=== PATIENT | male | born 1950 | race Caucasian/White ===

== ENCOUNTER → 2017-07-23 | Outpatient (CLI) | payer BC, MEDICARE ==
--- NOTE | 2017-07-23 13:06 | RAD ---
CT of the paranasal sinuses without contrast, 07/23/2017: History: Sinusitis Noncontrast scans were obtained and compared to a study from 10/23/2015. There is mild mucosal thickening in both maxillary sinuses. There is moderate mucosal thickening in both ethmoid sinuses. This involves the ostiomeatal complexes. There is mild mucosal thickening in both frontal sinuses. There is minimal mucosal thickening anteriorly in the left sphenoid sinus. No free fluid is evident in the paranasal sinuses. Similar findings were present on the previous study. There is an unchanged small defect in the medial wall of the right maxillary sinus which is presumably postsurgical. The bony structures are otherwise unremarkable. The orbital contents show no abnormality. IMPRESSION: Mild to moderate mucosal thickening in multiple paranasal sinuses as described above, compatible with chronic sinusitis. No free fluid is evident in the sinuses. PQRS Compliance Statement: One or more of the following individualized dose reduction techniques were utilized for this examination: 1. Automated exposure control 2. Adjustment of the mA and/or kV according to patient size 3. Use of iterative reconstruction technique
== END | disposition home or self-care (01) ==
LOC: CT 10:05
PROVIDERS: ATTEND Otolaryngology
DX: J32.9 Chronic sinusitis, unspecified (principal); Z98.890 Other specified postprocedural states
CPT/HCPCS: 70486

== ENCOUNTER 2018-09-28 11:35 | Inpatient (IN) | payer MEDICARE, BC ==
[~2018-09-28] VITALS: Ht 177.8 cm; Wt 89.0 kg
[2018-09-28 12:10] LABS: BASO % 1 % (0-3); EOS % 1 % (0-3); HEMATOCRIT 40.9 % (39.0-53.0); HEMOGLOBIN 14.6 g/dL (13.0-17.5); LYMPH # 1.2 x10^3/uL (1.0-4.8); LYMPH % 34 % (24-48); MEAN CORPUSCULAR HEMOGLOBIN 35 pg (25-35); MEAN CORPUSCULAR HGB CONC 36 g/dL (31-37); MEAN CORPUSCULAR VOLUME 98 fL (79-100); MONO # 0.3 x10^3/uL (0.0-1.1); MONO % 9 % (0-9); NEUT # 1.9 x10^3uL (1.8-7.7); NEUT % 56 % (31-73); PLATELET COUNT 191 x10^3/uL (140-400); RED CELL DISTRIBUTION WIDTH 13.7 % (11.5-14.5); WHITE BLOOD COUNT 3.4 x10^3/uL (4.0-11.0)
--- NOTE | 2018-09-28 12:23 | RAD ---
EXAM: Chest, 2 views. HISTORY: Chest pain. COMPARISON: None. FINDINGS: 2 views of the chest are obtained. There is no infiltrate, pleural effusion or pneumothorax. The heart is normal in size. IMPRESSION: No acute pulmonary finding. Electronically signed by: Page Salamanca MD (09/28/2018 12:21 PM) [place] [id number]
[2018-09-28 12:31] LABS: ALBUMIN 4.5 g/dL (3.4-5.0); ALBUMIN/GLOBULIN RATIO 1.4 (1.0-1.7); CALCIUM 9.5 mg/dL (8.5-10.1); CREATININE 1.9 mg/dL (0.7-1.3); GFR 35.5; POTASSIUM 3.2 mmol/L (3.5-5.1); TOTAL BILIRUBIN 0.9 mg/dL (0.2-1.0); TOTAL PROTEIN 7.7 g/dL (6.4-8.2)
[2018-09-28 12:41] LABS: BACTERIA,URINE 0 /HPF (0-FEW); BILIRUBIN,URINE NEG (NEG); CLARITY,URINE CLEAR; COLOR,URINE STRAW; GLUCOSE,URINE NEG (NEG); NITRITE,URINE NEG (NEG); RBC,URINE 0 /HPF (0-2); SQUAMOUS EPITHELIAL CELL,UR FEW /LPF; UROBILINOGEN,URINE 0.2 mg/dL (0.2 mg/dL); WBC,URINE 0 /HPF (0-4)
--- NOTE | 2018-09-28 12:43 | EKG ---
[address] [address] Test Date: 2018-09-28 Test Time: 11:39:38 Pat Name: KIMBERLY SERNA Department: Room: Gender: M Router Machine Operator: : [id number] Requested By: DAMON ALARCON Order Number: [id number] Reading MD: Tyler Sena MD Measurements Intervals [place] Rate: 82 P: 39 MS: 158 QRS: -34 QRSD: 80 T: 141 QT: 372 QTc: 438 Interpretive Statements SINUS RHYTHM ABNORMAL LEFT AXIS DEVIATION LEFT ANTERIOR FASCICULAR BLOCK CONSIDER LEFT VENTRICULAR HYPERTROPHY Electronically Signed On 09-29-2018 10:47:48 CDT by Tyler Sena MD
[2018-09-28] MEDS ORDERED: POTASSIUM CHLORIDE 20 MEQ TABLET.ER. PO ONE (12:45)
--- NOTE | 2018-09-28 14:03 | PHYS DOC ---
Past History Past Medical History: Other Past Surgical History: No Surgical History Alcohol Use: None Drug Use: None Adult General Chief Complaint Chief Complaint: CHEST PAIN HPI HPI Patient is a 68 year old male who presents with complaining of shortness of breath and hurting all over and chest pain. Patient complaining of hurting all over and generalized weakness for 2 months as a constant problem that gradually getting worse. Patient complaining of right-sided chest pain for the last couple days as a sharp pain without radiation that getting worse with taking deep breaths. Patient complaining of dizziness and lightheadedness and almost passing out prior to arrival to ER. Patient states he was treated for sinus infection by his primary care physician. Patient states he had abnormal PSA and has appointment for prostate biopsy next week and has concern about his health. Patient is very anxious and hyperventilating while giving the history. Review of Systems Review of Systems Constitutional: Denies fever or chills [] Eyes: Denies change in visual acuity, redness, or eye pain [] HENT: Denies nasal congestion or sore throat [] Respiratory: Reports cough and shortness of breath Cardiovascular: No additional information not addressed in HPI [] GI: Denies abdominal pain, nausea, vomiting, bloody stools or diarrhea [] : Denies dysuria or hematuria [] Musculoskeletal: Denies back pain or joint pain [] Integument: Denies rash or skin lesions [] Neurologic: Denies headache, focal weakness or sensory changes , reports dizziness[] Endocrine: Denies polyuria or polydipsia [] All other systems were reviewed and found to be within normal limits, except as documented in this note. Current Medications Current Medications Current Medications Medications (Trade) Dose Ordered Sig/Earlene Start Time Stop Time Status Last Admin Dose Admin Lorazepam (Ativan) 1 mg 1X ONCE 09/28/18 12:20 09/28/18 12:21 DC 09/28/18 12:20 1 MG Potassium Chloride (Klor-Con) 40 meq 1X ONCE 09/28/18 12:45 09/28/18 12:46 DC 09/28/18 12:45 40 MEQ Allergies Allergies Allergies Coded Allergies Type Severity Reaction Last Updated Verified No Known Drug Allergies 10/23/15 No Physical Exam Physical Exam Constitutional: Well developed, well nourished, moderate distress, non-toxic appearance, hyperventilating and anxious. [] HENT: Normocephalic, atraumatic, oropharynx moist, no oral exudates, nose normal. [] Eyes: PERRLA, EOMI, conjunctiva normal, no discharge. [] Neck: Normal range of motion, no tenderness, supple, no stridor. [] Cardiovascular:Heart rate regular rhythm, no murmur [] Lungs & Thorax: Bilateral breath sounds clear to auscultation [] Abdomen: Bowel sounds normal, soft, no tenderness, no masses, no pulsatile masses. [] Skin: Warm, dry, no erythema, no rash. [] Back: No tenderness, no CVA tenderness. [] Extremities: No tenderness, no cyanosis, no clubbing, ROM intact, no edema. [] Neurologic: Alert and oriented X 3, normal motor function, normal sensory function, no focal deficits noted. [] Psychologic: Affect anxious, judgement normal, mood normal. [] Current Patient Data Vital Signs Vital Signs Date Time Temp Pulse Resp B/P (MAP) Pulse Ox O2 Delivery O2 Flow Rate FiO2 09/28/18 12:02 88 20 96 Nasal Cannula 3.0 Lab Results Laboratory Tests Test 09/28/18 11:45 09/28/18 12:14 White Blood Count 3.4 x10^3/uL (4.0-11.0) L Red Blood Count 4.20 x10^6/uL (4.30-5.70) L Hemoglobin 14.6 g/dL (13.0-17.5) Hematocrit 40.9 % (39.0-53.0) Mean Corpuscular Volume 98 fL (79-100) Mean Corpuscular Hemoglobin 35 pg (25-35) Mean Corpuscular Hemoglobin Concent 36 g/dL (31-37) Red Cell Distribution Width 13.7 % (11.5-14.5) Platelet Count 191 x10^3/uL (140-400) Neutrophils (%) (Auto) 56 % (31-73) Lymphocytes (%) (Auto) 34 % (24-48) Monocytes (%) (Auto) 9 % (0-9) Eosinophils (%) (Auto) 1 % (0-3) Basophils (%) (Auto) 1 % (0-3) Neutrophils # (Auto) 1.9 x10^3uL (1.8-7.7) Lymphocytes # (Auto) 1.2 x10^3/uL (1.0-4.8) Monocytes # (Auto) 0.3 x10^3/uL (0.0-1.1) Eosinophils # (Auto) 0.0 x10^3/uL (0.0-0.7) Basophils # (Auto) 0.0 x10^3/uL (0.0-0.2) D-Dimer (Mohini) 0.64 mg/L (0.00-0.50) H Sodium Level 141 mmol/L (136-145) Potassium Level 3.2 mmol/L (3.5-5.1) L Chloride Level 100 mmol/L (98-107) Carbon Dioxide Level 24 mmol/L (21-32) Anion Gap 17 (6-14) H Blood Urea Nitrogen 20 mg/dL (8-26) Creatinine 1.9 mg/dL (0.7-1.3) H Estimated GFR (Cockcroft-Gault) 35.5 BUN/Creatinine Ratio 11 (6-20) Glucose Level 171 mg/dL (70-99) H Calcium Level 9.5 mg/dL (8.5-10.1) Total Bilirubin 0.9 mg/dL (0.2-1.0) Aspartate Amino Transferase (AST) 26 U/L (15-37) Alanine Aminotransferase (ALT) 31 U/L (16-63) Alkaline Phosphatase 96 U/L (46-116) Creatine Kinase 116 U/L (39-308) Troponin I Quantitative < 0.017 ng/mL (0-0.055) VQ-Arr-R-Type Natriuretic Peptide 70 pg/mL (0-124) Total Protein 7.7 g/dL (6.4-8.2) Albumin 4.5 g/dL (3.4-5.0) Albumin/Globulin Ratio 1.4 (1.0-1.7) Lipase 240 U/L (73-393) Urine Collection Type Unknown Urine Color Straw Urine Clarity Clear Urine pH 7.5 Urine Specific [place] 1.010 Urine Protein Neg (NEG-TRACE) Urine Glucose (UA) Neg mg/dL (NEG) Urine Ketones (Stick) Neg mg/dL (NEG) Urine Blood Neg (NEG) Urine Nitrite Neg (NEG) Urine Bilirubin Neg (NEG) Urine Urobilinogen Dipstick 0.2 mg/dL (0.2 mg/dL) Urine Leukocyte Esterase Neg (NEG) Urine RBC 0 /HPF (0-2) Urine WBC 0 /HPF (0-4) Urine Squamous Epithelial Cells Few /LPF Urine Bacteria 0 /HPF (0-FEW) EKG EKG EKG interpreted by me. EKG at 1139 showed normal sinus rhythm at rate of 82, left axis deviation, left anterior fascicular block, left ventricular hypertrophy, T-wave abnormality in inferior and anterolateral lateral leads, no acute ST and T-wave abnormalities. Radiology/Procedures Radiology/Procedures [] Course & Med Decision Making Course & Med Decision Making Pertinent Labs and Imaging studies reviewed. (See chart for details) Evaluation of patient in ER showed 68-year-old male patient with complaining of generalized weakness and shortness of breath for 2 months and chest pain for couple days with near syncopal episode prior to arrival to ER. Patient was very anxious at arrival to ER and felt better with Ativan and oxygen. Patient had abnormal T wave in EKG with creatinine of 1.9 and white count of 3.4 and potassium of 3.2. D-dimer was mildly elevated and VQ scan is pending. Patient informed about this results and plan of care. Dr. Rubio accepted admission at 1356. Dragon Disclaimer Dragon Disclaimer This electronic medical record was generated, in whole or in part, using a voice recognition dictation system. Departure Departure: Impression: Primary Impression: Chest pain Additional Impressions: Hypokalemia Renal insufficiency Leukopenia Anxiety about health Dyspnea Elevated d-dimer Disposition: ADMITTED INPATIENT (@1357) Admitting Physician: Caroline Rubio (accepted admission at 1356) Condition: IMPROVED Referrals: STEFANI BONILLA MD (PCP) Problem Qualifiers Primary Impression: Chest pain Chest pain type: unspecified Qualified Codes: R07.9 - Chest pain, unspecified Additional Impressions: Leukopenia Leukopenia type: unspecified Qualified Codes: D72.819 - Decreased white blood cell count, unspecified Dyspnea Dyspnea type: dyspnea on exertion Qualified Codes: R06.09 - Other forms of dyspnea DAMON ALARCON MD Sep 28, 2018 14:03
[2018-09-28] MEDS ORDERED: LOSA1TAB22 PO (15:08)
[2018-09-28] MEDS ORDERED: OMEP20TA63 PO (15:08)
[2018-09-28] MEDS ORDERED: OXYM30SP73 NS (15:08)
[2018-09-28] MEDS ORDERED: NEBI10TA3 PO (15:08)
[2018-09-28] MEDS ORDERED: ATORVASTATIN CA80 MG PO (15:08)
[2018-09-28] MEDS ORDERED: OMEG1CAP6 PO (15:08)
[2018-09-28] MEDS ORDERED: IPRA0.2S5 NEB (15:08)
[2018-09-28 17:40] VITALS: BP 187/82
--- NOTE | 2018-09-28 17:47 | RAD ---
CLINICAL HISTORY: Elevated D Dimer Dyspnea near syncope fatigue 10.5mci 133XE Gas 5.5mci 99mTc MAA COMPARISON: None available. TECHNIQUE: Radiopharmaceutical Dose: 5.5 mCi Tc99m MAA intravenous , 10.5 mCi Xe-133 Inhalation The patient was injected with tracer in the supine position and images obtained in the anterior, posterior, anterior oblique, posterior oblique, and lateral projections. A ventilation study was performed in the same projections. FINDINGS: There is symmetric uptake of radiotracer on the perfusion images without perfusion defect. There is also symmetric uptake on the ventilation scan, also without discrete ventilation defect IMPRESSION: Normal examination. Radiation Dosimetry: The radiopharmaceutical used for this exam delivers approximately: 0.4 mSv/mCi (40 mRem/mCi) from Tc99m perfusion imaging. 0.2 mSv/mCi (20 mRem/mCi) from Tc99m DTPA aerosol imaging. 0.027 mSv/mCi (2.7 mRem/mCi) from Xe-133 ventilation imaging. Source: Effective dose RADAR Electronically signed by: Jered Lopes MD (09/28/2018 5:44 PM) [facility]
[2018-09-28 20:01] VITALS: BP 175/75
[2018-09-28] MEDS ORDERED: ATORVASTATIN CALCIUM 20 MG TABLET PO SCH (21:00)
[2018-09-28] MEDS ORDERED: METOPROLOL TART IMMED RELEASE 50 MG TABLET PO SCH (21:00)
[2018-09-28 23:14] VITALS: BP 145/75
[2018-09-29 03:39] LABS: HEMATOCRIT 39.3 % (39.0-53.0); HEMOGLOBIN 13.9 g/dL (13.0-17.5); RED CELL DISTRIBUTION WIDTH 13.9 % (11.5-14.5); WHITE BLOOD COUNT 4.5 x10^3/uL (4.0-11.0)
[2018-09-29 04:38] LABS: ALBUMIN/GLOBULIN RATIO 1.2 (1.0-1.7); C REACTIVE PROTEIN 1.2 mg/L (0-3.3); CALCIUM 9.3 mg/dL (8.5-10.1); CREATININE 1.7 mg/dL (0.7-1.3); GFR 40.4; TOTAL BILIRUBIN 0.7 mg/dL (0.2-1.0); TOTAL PROTEIN 7.3 g/dL (6.4-8.2)
[2018-09-29 05:34] VITALS: BP 149/81
[2018-09-29] MEDS ORDERED: PANTOPRAZOLE 40 MG TABLET. PO SCH (07:30)
--- NOTE | 2018-09-29 07:46 | PDOC2 ---
CONSULT Date of Admission DATE: 09/29/18 TIME: 07:46 Reason for Consult: chest pain Problem List Problems Medical Problems: (1) Anxiety about health Status: Acute (2) Chest pain Status: Acute (3) Dyspnea Status: Acute (4) Elevated d-dimer Status: Acute (5) Hypokalemia Status: Acute (6) Leukopenia Status: Acute (7) Renal insufficiency Status: Acute History of Present Illness Mr Lr is a 68 year old male who normally follows with [facility] for his cardiology care. He presented with complaints of progressive fatigue since April. He reports a significant decrease in his functional capacity due to lack of energy. He reports recent antibiotic use for sore throat and upper respiratory symptoms but denies fever, chills or cough. He does report some dyspnea on exertion since April which was increased yesterday with wheezing and feeling he could not get a deep breath. He reports intermittent chest discomfort described as a knot in his right chest. He is unable to articulate if this occurs with exertion or not. He reports it only lasts a few minutes each time. yesterday he felt that his symptoms were becoming more pronounced with addition of lightheadedness and the feeling that he might pass out. He did have an appointment with cardiology yesterday but felt bad enough that he called EMS instead. He denies palpitations. He denies congestive symptoms. He reports frequent use of ibuprofen recently to manage symptoms. Past Medical History Stress echo 02/05/16 normal heart rate and blood pressure response to stress no chest pain PACs and PVCs noted no significant stress induced ECG changes Good Exercise capacity with Packer score 9 normal exercise echo. Echo 02/12/17 LVEF 55-60%. No WMA. Mild LVH. Impaired LV relaxation suggestive of stage I diastolic dysfunction mild aortic valve sclerosis with trace AI mild to moderate mitral regurgitation estimated PAS 29 mmHg compared to 2016, no significant change He reports prior recommendation to decrease ETOH consumption due to risk of pancreatitis Cardiovascular: HTN, hyperipidemia (lipids in July - LDL 87, HDL 55, Tgs 134) GI: GERD, Other (internal hemorrhoids, diverticulosis and tubular adenoma) Psych: Anxiety Musculoskeletal: Other (hammer toes) ENT: Sinusitis Renal/: Other (epididymitis, elevated PSA with scheduled biopsy for next week.) Past Surgical History sinus surgeries, bone spur surgery Family History no premature coronary disease Social History non smoker, He does report ETOH use but significantly less since ~2009, denies illicit drugs Current Medications Current Medications Lorazepam (Ativan) 1 mg 1X ONCE IV Last administered on 09/28/18at 12:20; Start 09/28/18 at 12:20; Stop 09/28/18 at 12:21; Status DC Potassium Chloride (Klor-Con) 40 meq 1X ONCE PO Last administered on at 12:45; Start 09/28/18 at 12:45; Stop 09/28/18 at 12:46; Status DC Atorvastatin Calcium (Lipitor) 80 mg QHS PO Last administered on 09/28/18at 20: 38; Start 09/28/18 at 21:00 Metoprolol Tartrate (Lopressor) 50 mg BID PO Last administered on 09/28/18at 20: 39; Start 09/28/18 at 21:00 Pantoprazole Sodium (Protonix) 40 mg DAILYAC PO ; Start 09/29/18 at 07:30 Oxymetazoline HCl (Afrin) 2 spray DAILY NS ; Start 09/29/18 at 09:00 Active Scripts Active Reported Ipratropium [place] 0.2 Mg/1 Ml Solution 1 Vial NEB QIDPRN PRN Nasal [place] Original (Oxymetazoline Hcl) 30 Ml [place] 30 Ml NS DAILY Prilosec Otc (Omeprazole Magnesium) 20 Mg Tablet.dr 1 Tab PO DAILY Fish Oil 1,000 Mg Capsule ([place]-3 Fatty Acids/Fish Oil) 1 Each Capsule 1 Each PO DAILY Losartan-Hctz 100-25 Mg Tab (Losartan/Hydrochlorothiazide) 1 Each Tablet 1 Tab PO DAILY Atorvastatin Calcium 80 Mg Tablet 1 Tab PO DAILY Bystolic (Nebivolol Hcl) 10 Mg Tablet 1 Tab PO DAILY Allergies: Coded Allergies: No Known Drug Allergies (Unverified , 10/23/15) General: YES: Fatigue, Malaise HEENT: YES: Nasal congestion, Nasal discharge, Sinus pain, Sore Throat ALLERGY AND IMMUNOLOGY: YES: Post Nasal Drip Respiratory: YES: SOB with excertion Cardiovascular: yes: Chest Pain, Lt Headedness General: Alert, Oriented X3, No acute distress HEENT: Atraumatic, EOMI Lungs: Clear to auscultation, Normal air movement Heart: Normal S1, Normal S2, Other (no gallops, clicks or rubs. soft systolic murmur) Abdomen: Normal bowel sounds, Soft Extremities: No cyanosis, No edema, Normal pulses Neuro: Normal speech, Strength at 5/5 X4 ext Psych/Mental Status: Mental status NL, Other (irritable ) VITALS Vital Signs Date Time Temp Pulse Resp B/P (MAP) Pulse Ox O2 Delivery O2 Flow Rate FiO2 09/29/18 05:34 97.8 56 10 149/81 (103) 99 Room Air 09/28/18 12:02 3.0 Labs Laboratory Tests Test 09/28/18 11:45 09/28/18 12:14 09/29/18 00:27 09/29/18 03:29 White Blood Count 3.4 x10^3/uL (4.0-11.0) 4.5 x10^3/uL (4.0-11.0) Red Blood Count 4.20 x10^6/uL (4.30-5.70) 4.00 x10^6/uL (4.30-5.70) Hemoglobin 14.6 g/dL (13.0-17.5) 13.9 g/dL (13.0-17.5) Hematocrit 40.9 % (39.0-53.0) 39.3 % (39.0-53.0) Mean Corpuscular Volume 98 fL (79-100) 98 fL (79-100) Mean Corpuscular Hemoglobin 35 pg (25-35) 35 pg (25-35) Mean Corpuscular Hemoglobin Concent 36 g/dL (31-37) 35 g/dL (31-37) Red Cell Distribution Width 13.7 % (11.5-14.5) 13.9 % (11.5-14.5) Platelet Count 191 x10^3/uL (140-400) 185 x10^3/uL (140-400) Neutrophils (%) (Auto) 56 % (31-73) Lymphocytes (%) (Auto) 34 % (24-48) Monocytes (%) (Auto) 9 % (0-9) Eosinophils (%) (Auto) 1 % (0-3) Basophils (%) (Auto) 1 % (0-3) Neutrophils # (Auto) 1.9 x10^3uL (1.8-7.7) Lymphocytes # (Auto) 1.2 x10^3/uL (1.0-4.8) Monocytes # (Auto) 0.3 x10^3/uL (0.0-1.1) Eosinophils # (Auto) 0.0 x10^3/uL (0.0-0.7) Basophils # (Auto) 0.0 x10^3/uL (0.0-0.2) D-Dimer (Mohini) 0.64 mg/L (0.00-0.50) Sodium Level 141 mmol/L (136-145) 144 mmol/L (136-145) Potassium Level 3.2 mmol/L (3.5-5.1) 4.0 mmol/L (3.5-5.1) Chloride Level 100 mmol/L (98-107) 105 mmol/L (98-107) Carbon Dioxide Level 24 mmol/L (21-32) 27 mmol/L (21-32) Anion Gap 17 (6-14) 12 (6-14) Blood Urea Nitrogen 20 mg/dL (8-26) 22 mg/dL (8-26) Creatinine 1.9 mg/dL (0.7-1.3) 1.7 mg/dL (0.7-1.3) Estimated GFR (Cockcroft-Gault) 35.5 40.4 BUN/Creatinine Ratio 11 (6-20) 13 (6-20) Glucose Level 171 mg/dL (70-99) 101 mg/dL (70-99) Calcium Level 9.5 mg/dL (8.5-10.1) 9.3 mg/dL (8.5-10.1) Total Bilirubin 0.9 mg/dL (0.2-1.0) 0.7 mg/dL (0.2-1.0) Aspartate Amino Transf (AST/SGOT) 26 U/L (15-37) 21 U/L (15-37) Alanine Aminotransferase (ALT/SGPT) 31 U/L (16-63) 28 U/L (16-63) Alkaline Phosphatase 96 U/L (46-116) 81 U/L (46-116) Creatine Kinase 116 U/L (39-308) Troponin I Quantitative < 0.017 ng/mL (0-0.055) < 0.017 ng/mL (0-0.055) < 0.017 ng/mL (0-0.055) FU-Iqa-L-Type Natriuretic Peptide 70 pg/mL (0-124) Total Protein 7.7 g/dL (6.4-8.2) 7.3 g/dL (6.4-8.2) Albumin 4.5 g/dL (3.4-5.0) 4.0 g/dL (3.4-5.0) Albumin/Globulin Ratio 1.4 (1.0-1.7) 1.2 (1.0-1.7) Lipase 240 U/L (73-393) Urine Collection Type Unknown Urine Color Straw Urine Clarity Clear Urine pH 7.5 Urine Specific [place] 1.010 Urine Protein Neg (NEG-TRACE) Urine Glucose (UA) Neg mg/dL (NEG) Urine Ketones (Stick) Neg mg/dL (NEG) Urine Blood Neg (NEG) Urine Nitrite Neg (NEG) Urine Bilirubin Neg (NEG) Urine Urobilinogen Dipstick 0.2 mg/dL (0.2 mg/dL) Urine Leukocyte Esterase Neg (NEG) Urine RBC 0 /HPF (0-2) Urine WBC 0 /HPF (0-4) Urine Squamous Epithelial Cells Few /LPF Urine Bacteria 0 /HPF (0-FEW) Erythrocyte Sedimentation Rate 20 (0-15) C-Reactive Protein 1.2 mg/L (0-3.3) Images EKG sinus rhythm, left axis, nonspecific st/t abn, no acute ischemic changes Assessment/Plan 1. Chest pain, MN ruled out. EKG with no acute ischemic changes. continue beta shan, start aspirin, check lipids and echo. outpatient MPI if no significant abnormalities 2. dyspnea on exertion - no overt heart failure. 3. URI with history of chronic sinusitis and surgeries x 3 - per PCP 4. accelerated hypertension - add hydralazine. resume home ARB and monitor renal function 5. acute on chronic renal insufficiency - Cr on admit 1.9, 1.7 today. Baseline Cr 1.3 in July. Resume losartan, discontinue HCTZ. Monitor. Will need outpatient BMP follow up. Likely secondary to combination of mild dehydration and increased NSAID use. 6. hyperlipidemia - resume statin, check lipids, well controlled in Jul 2018 7. Fatigue - TSH 1.49 in July, check Vit D, consider outpatient sleep study 8. elevated PSA - scheduled for biopsy next week 9. anxiety Cardiology records reviewed. Check echo, ambulate for chronotropic response. if no significant abn, ok for outpatient CV follow up and consider MPI, event monitoring and sleep study as outpatient. JENNIFER PRICE APRN Sep 29, 2018 07:46
[2018-09-29] MEDS ORDERED: ASPIRIN ENTERIC COATED 81 MG TABLET.DR. PO SCH (08:00)
[2018-09-29] MEDS ORDERED: ACETAMINOPHEN 500 MG TABLET PO ONE (08:26)
[2018-09-29] MEDS ORDERED: ACETAMINOPHEN 500 MG TABLET PO PRN (08:30)
[2018-09-29] MEDS ORDERED: METOPROLOL TART IMMED RELEASE 50 MG TABLET PO SCH (09:00)
[2018-09-29] MEDS ORDERED: OXYMETAZOLINE 0.05% NASAL SPRAY 15ML BOTTLE. NS SCH (09:00)
[2018-09-29] MEDS ORDERED: LOSARTAN 50 MG TABLET. PO SCH (09:00)
[2018-09-29 11:07] VITALS: BP 137/80
[2018-09-29 15:30] VITALS: BP 167/88
--- NOTE | 2018-09-29 16:07 | HP ---
ADMIT DATE: 09/28/2018 HISTORY OF PRESENT ILLNESS: The patient is a 68-year-old male patient who came to the Emergency Room complaining of shortness of breath, hurting all over. Right-sided chest pain has also generalized weakness; it is going on for almost 2 months as a constant problem that gradually getting worse. The patient is complaining of right-sided chest pain for the last couple of days, described as sharp pain without radiation that is getting worse by taking deep breaths. He is complaining of dizziness, lightheadedness, and almost passing out prior to arrival to Emergency Room. He stated he was treated for sinus infection by his primary care physician. He also had an abnormal PSA and has an appointment for prostate biopsy on 10/06/2018. The patient was extremely anxious and hyperventilating while giving the history. PAST MEDICAL HISTORY: He was basically evaluated in the Emergency Room, has had an EKG, which showed that he was in sinus rhythm at a rate of 82 with left axis deviation, left anterior fascicular block, left ventricular hypertrophy with some T-wave abnormalities in inferior and anterolateral leads, but no ST segment or T-wave elevation. His first set of cardiac enzyme was less than 0.017. The patient was admitted to do 2 more sets of cardiac enzyme to check his fasting lipid profile and to consult the cardiology team. PAST MEDICAL HISTORY: Significant for hypertension, hyperlipidemia, chronic sinusitis and he has also obstructive sleep apnea for which he underwent bilateral uvuloplasty. PAST SURGICAL HISTORY: Significant for sinus surgery x 3 and bilateral uvulo-pharyngoplasty, colonoscopy and polypectomy. ALLERGIES: He has no known drug allergies. He has multiple seasonal allergies. MEDICATIONS: He is currently on following medications: He is on ipratropium bromide 1 by nebulizer 4 times a day, atorvastatin 80 mg at bedtime, omega-3 fatty acid 1 capsule once a day, Bystolic 10 mg once a day, losartan/hydrochlorothiazide 100/25 one tablet once a day, oxymetazoline 1 spray to each nostril once a day, omeprazole for Prilosec 20 mg daily. FAMILY HISTORY: He has a twin brother who has tongue cancer for which he underwent partial tongue resection and radical neck resection, it is about 12 years ago and is doing well now. One older brother is healthy and older sister is healthy. His father at the age of 71 because of multiple myeloma and mother at age of 88 because of Parkinson's disease. SOCIAL HISTORY: He is , has a son with Asperger's disease. He has never smoked. Drinks alcohol, one beer daily. 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 REVIEW OF SYSTEMS: The patient denied any blurring of vision, cataract, glaucoma or macular degeneration. Denied any earache, tinnitus or sensorineural deafness. Denied any nosebleeds, stuffy nose or postnasal drip. Denied any sore throat, sore tongue, toothache, hoarseness of voice or difficulty swallowing. Denied any nausea, vomiting, diarrhea or constipation. Denied any hematemesis, melena or hematochezia. Denied any dysuria, frequency or hematuria. Did complain of chest pain and shortness of breath. Denied of any cough, phlegm or hemoptysis. Did complain of some dizziness and lightheadedness, but denied any chills, rigors or fever. PHYSICAL EXAMINATION: GENERAL: On arrival to the Emergency Room, he looked well and was clearly in no apparent respiratory distress. No pallor, jaundice, cyanosis, or thyromegaly. No jugular venous distension. No lower limb edema. VITAL SIGNS: Her heart rate was 88, blood pressure was 187/82, temperature was 98.2, respiratory rate was 20, and oxygen saturation was 96% on 3 liters of oxygen by nasal cannula. HEAD, EYES, EARS, NOSE AND THROAT: Showed normocephalic, atraumatic. NECK: Supple. HEART: Showed normal first and second heart sounds. No gallop, rub or murmur. CHEST: Clear to auscultation. No crepitation or rhonchi. ABDOMEN: Distended, soft, nontender. No guarding or rigidity. No organomegaly. All hernial orifices are intact. Bowel sounds are normal. NEUROLOGIC: He was awake, alert, responding appropriately. All cranial nerves are intact. EXTREMITIES: He moves extremities without difficulty, ambulates without assistance or assistive device. LABORATORY DATA: On arrival to the Emergency Room, he has had lab work done showed his serum sodium ____, potassium 3.2, chloride 100, bicarbonate 24, anion gap of 17, BUN 20, creatinine 1.9, estimated GFR was 35 mL per minute, his glucose 171, calcium was 9.5. Total bilirubin, AST, ALT, alkaline phosphatase were normal. His total protein was 7.7, albumin was 4.5. His white cell count was 3400, hemoglobin 14.6, hematocrit 41, MCV 98, and platelet count of 191,000. His D-dimer was slightly elevated at 0.64 and his urinalysis was essentially unremarkable. He was admitted to do 2 more sets of cardiac enzyme to check his fasting lipid profile and consult the construction grip. LASHONDA CURTIS MD DR: ELVIN/antolin JOB#: [id number] / [id number]
--- NOTE | 2018-09-29 16:58 | DS ---
DATE OF DISCHARGE: 09/28/2018 HISTORY OF PRESENT ILLNESS: The patient is a 68-year-old male patient who was admitted with atypical right-sided chest pain, shortness of breath. He did have 3 sets of cardiac enzymes that were negative and showed the troponin to be less than 0.017 and his sedimentation rate was only 20 mm per hour and C-reactive protein was 1.2 mg/dL. His fasting lipid profile showed that his triglycerides were 190, total cholesterol 149, LDL cholesterol was 76, VLDL was 38, and HDL cholesterol was 35, ratio was 4. The cardiology nurse practitioner ordered an echocardiogram that could not be done and arrangement was made for him to have both echocardiogram and nuclear stress test done at his [employer] office, Dr. Sweet as an outpatient. PHYSICAL EXAMINATION: GENERAL: When I saw him this afternoon, he looked well and was somewhat anxious, but was in no apparent respiratory distress. There was no pallor, jaundice, cyanosis, or thyromegaly. No jugular venous distension. No limb edema. VITAL SIGNS: His heart rate was 70, blood pressure was 167/88, temperature was 98.2, respiratory rate was 18 and oxygen saturation was 98%. Rest of clinical exam is stable, has not really changed. LABORATORY DATA: His lab work this morning showed a white cell count 4500, hemoglobin 13.9, hematocrit 39, MCV 88, and platelet count of 185,000. His chemistry this morning showed a serum sodium 144, potassium 4, chloride 105, bicarbonate 27, anion gap of 12, BUN 22, creatinine 1.7, estimated GFR was 40 mL per minute, his glucose 101, calcium was 9.3. Total bilirubin, AST, ALT, alkaline phosphatase were normal. His total protein was 7.3, albumin 4. His fasting lipid profile showed that his triglycerides were 190, total cholesterol 149, LDL was 76, VLDL was 38, and HDL was 35, ratio of 4. DISCHARGE MEDICATIONS: He was discharged home to continue on his medication in the form of atorvastatin, calcium 80 mg once a day, ipratropium bromide by nebulizer 4 times a day, losartan/hydrochlorothiazide 100/25 one tablet daily, Bystolic 10 mg once a day, omega-3 fatty acid once a day, omeprazole 20 mg once a day and oxymetazoline nasal spray one spray to each nostril daily. FINAL DISCHARGE DIAGNOSES: 1. Chest pain, atypical, myocardial infarction, ruled out. 2. Hypertension. 3. Hyperlipidemia. 4. Chronic sinusitis. LASHONDA CURTIS MD DR: ELVIN/antolin JOB#: [id number] / [id number]
== END 2018-09-29 15:50 | disposition home or self-care (01) | DRG 313 ==
LOC: ER 11:35 → 1 SOUTH 17:00
PROVIDERS: ADMIT Internal Medicine; ATTEND Internal Medicine
DX: R07.89 Other chest pain (principal); E87.6 Hypokalemia; D72.819 Decreased white blood cell count, unspecified; F41.9 Anxiety disorder, unspecified; E78.5 Hyperlipidemia, unspecified; E86.0 Dehydration; G47.33 Obstructive sleep apnea (adult) (pediatric); I12.9 Hypertensive chronic kidney disease with stage 1 through stage 4 chronic kidney disease, or unspecified chronic kidney disease; I34.0 Nonrheumatic mitral (valve) insufficiency; J06.9 Acute upper respiratory infection, unspecified; K57.90 Diverticulosis of intestine, part unspecified, without perforation or abscess without bleeding; J32.9 Chronic sinusitis, unspecified; K21.9 Gastro-esophageal reflux disease without esophagitis; N18.9 Chronic kidney disease, unspecified; R79.1 Abnormal coagulation profile; Z80.7 Family history of other malignant neoplasms of lymphoid, hematopoietic and related tissues; Z80.8 Family history of malignant neoplasm of other organs or systems; Z82.0 Family history of epilepsy and other diseases of the nervous system
CPT/HCPCS: 36415; 71046; 78582; 80053; 80061; 81001; 82550; 83690; 83880; 84484; 85025; 85027; 85379; 85651; 86140; 93005; 96374; A9540; A9558; J2060; 99285-25

== ENCOUNTER → 2019-07-04 | Outpatient (CLI) | payer MEDICARE, BC ==
[~2019-07-04] MED LIST: ATORVASTATIN CA80 MG PO; IPRA0.2S5 NEB; LOSA1TAB22 PO; NEBI10TA3 PO; OMEG1CAP6 PO; OMEP20TA63 PO; OXYM30SP73 NS
--- NOTE | 2019-07-04 17:43 | RAD ---
Chest PA and lateral: Reason for examination: Cough and chest pain. Comparison is made to previous study dated 09/28/2018. The heart size is normal. Mediastinum is unremarkable. Lung olvera are clear. No acute bony abnormalities are seen. Impression: No acute cardiopulmonary disease. KUB: There is no gross organomegaly. Psoas muscles are symmetric. Bowel gas pattern is nonspecific with small and large intestinal air but no abnormal dilatation. Calcifications consistent with phleboliths are seen low in the right no other abnormal calcifications are identified. No acute bony abnormalities are seen. IMPRESSION: Nonspecific bowel gas pattern with small and large intestinal air but no abnormal dilatation or obstruction evident. Electronically signed by: Paola Mclaughlin MD (07/04/2019 5:40 PM) [id number]
== END | disposition home or self-care (01) ==
LOC: RAD 17:10
PROVIDERS: ATTEND Registered Nurse
DX: R19.8 Other specified symptoms and signs involving the digestive system and abdomen (principal); R07.9 Chest pain, unspecified; R05 Cough
CPT/HCPCS: 71046; 74018

== ENCOUNTER → 2019-07-19 | Outpatient (CLI) | payer MEDICARE, BC ==
[~2019-07-19] MED LIST changes: +IOHEXOL 240 MG/ML 50ML VIAL. ONE; +IOHEXOL 240 MG/ML 50ML VIAL. PO ONE; +IOHEXOL 300 MG/ML 75 ML VIAL. IV ONE
[2019-07-19 14:17] LABS: CREATININE 1.4 mg/dL (0.7-1.3); GFR 50.5
--- NOTE | 2019-07-19 14:58 | RAD ---
PQRS Compliance Statement: One or more of the following individualized dose reduction techniques were utilized for this examination: 1. Automated exposure control 2. Adjustment of the mA and/or kV according to patient size 3. Use of iterative reconstruction technique CT abdomen/pelvis with contrast 07/19/2019 3:00 PM INDICATION: Right-sided abdominal pain, change in bowel habits COMPARISON: None available TECHNIQUE: Multiple axial CT images of the abdomen and pelvis were obtained after the intravenous administration of nonionic contrast. Coronal and sagittal reformats are provided. FINDINGS: Visualized portions of the lung bases are clear. Heart size is within normal limits. No suspicious hepatic masses are identified. Liver is homogeneous in enhancement. Spleen, bilateral adrenal glands, and pancreas are normal in appearance. Gallbladder is present without adjacent inflammatory changes. The abdominal aorta is normal in course and caliber. There are no pathologically enlarged lymph nodes in the abdomen and pelvis. There is no abdominal free fluid. There is no free intraperitoneal air. Mild to moderate colonic diverticulosis without adjacent inflammatory changes. No evidence of bowel obstruction or inflammation. Appendix is not definitively visualized. No pericecal inflammatory changes are identified. The kidneys enhance symmetrically. There is no suspicious renal mass. There is no hydronephrosis. There are no suspected calculi within the kidneys, ureters or urinary bladder. Urinary bladder is within normal limits given degree of distention. Prostate and seminal vesicles are normal in appearance. No suspicious osseous abnormality is identified. IMPRESSION: 1. No acute abnormality is identified in the abdomen and pelvis. Electronically signed by: Alyce Cohen MD (07/19/2019 2:56 PM) [facility]
== END | disposition home or self-care (01) ==
LOC: CT 13:33
PROVIDERS: ATTEND Family Medicine
DX: K57.30 Diverticulosis of large intestine without perforation or abscess without bleeding (principal); I10 Essential (primary) hypertension; E78.5 Hyperlipidemia, unspecified; R19.4 Change in bowel habit
CPT/HCPCS: 36415; 74177; 82565; 84520; Q9966; Q9967

== ENCOUNTER → 2021-11-21 | Outpatient (CLI) | payer MEDICARE, BC ==
[~2021-11-21] MED LIST changes: -IOHEXOL 240 MG/ML 50ML VIAL. ONE; -IOHEXOL 240 MG/ML 50ML VIAL. PO ONE; -IOHEXOL 300 MG/ML 75 ML VIAL. IV ONE
--- NOTE | 2021-11-21 09:50 | RAD ---
US ABDOMEN OR LOWER BACK LIMITED History: Right upper quadrant pain Comparison: None. Technique: Sonographic examination of the right upper quadrant of the abdomen. Findings: Pancreas: Obscured by bowel gas. Liver: The liver measures 16.2 cm. Liver echotexture is normal. No focal hepatic lesions. Hepatopet al flow in the portal vein. Gallbladder: No gallstones, wall thickening or pericholecystic fluid. Bile ducts: The common duct measures 2 mm. Right kidney: 9.9 cm length. No mass or hydronephrosis. Aorta/IVC: Poorly visualized due to bowel gas. Other: No ascites. Impression: 1. No cholelithiasis or acute cholecystitis. Electronically signed by: Vlad Torres MD (11/21/2021 9:47 AM) [id number]
== END ==
LOC: US 08:31
PROVIDERS: ATTEND Family Medicine
DX: R10.11 Right upper quadrant pain (principal)
CPT/HCPCS: 76705